=== PATIENT | male | born 1950 | race Caucasian/White ===

== ENCOUNTER 2017-01-28 06:42 | Day surgery (SDC) | END 2017-01-28 11:13 | disposition home or self-care (01) | DX: H25.11 Age-related nuclear cataract, right eye (principal); E11.9 Type 2 diabetes mellitus without complications; I10 Essential (primary) hypertension; E78.5 Hyperlipidemia, unspecified | CPT/HCPCS: 66984; 82962; J0171; J2250; J2710; J3010; V2632 ==